=== PATIENT | male | born 1995 | race Hispanic/Latino ===

== ENCOUNTER 2019-05-17 15:06 | Emergency (ER) | payer OTHER ==
[~2019-05-17] VITALS: Ht 190.5 cm; Wt 99.1 kg
[2019-05-17 15:08] VITALS: BP 134/84
[2019-05-17] MEDS ORDERED: NEOSPORIN OINT 0.9 GM PKT (FLOOR STOCK) TOP ONE (17:00)
== END 2019-05-17 17:12 | disposition home or self-care (01) ==
LOC: M ED 15:06
DX: T23.001A Burn of unspecified degree of right hand, unspecified site, initial encounter (principal); X13.1XXA Other contact with steam and other hot vapors, initial encounter; Y92.511 Restaurant or cafe as the place of occurrence of the external cause; F17.210 Nicotine dependence, cigarettes, uncomplicated